=== PATIENT | male | born 1980 | race African-American/Black ===

== ENCOUNTER 2024-10-04 22:19 | Emergency (ER) | payer OTHER ==
[~2024-10-04] VITALS: Ht 180.3 cm; Wt 150.0 kg
[2024-10-04 22:19] VITALS: BP 0/0; PULSE 0; RESP 0; O2SAT 88
--- NOTE | 2024-10-04 22:30 | ED.PDOC ---
History of Present Illness HPI Comments 43 y/o M, with known reported Hx of CHF, HTN, and unknown blood thinner use, is BIBA for cardiac arrest, today. Per EMS report, they received a call at 2129 this evening, after family found him down, with a last reported seen normal time of, approximately, an hour prior. On scene arrival at 2136, patient was found in asystole and a blood glucose of 91, with compressions being performed by family, prior to care being assumed by EMS staff. En route, compressions were continued in addition to the patient being administered 4mg Narcan, calcium, sodium bicarbonate, and 5x epinephrine rounds (last round given at 2214), with no ROSC. Patient was also intubated with a 7.0 endotracheal tube 23 cm at the teeth and had a I/O placed to his right proximal tibia by EMS. Upon arrival to ED at 2217, patient still remained in asystole, with an estimated total downtime of approximately 2 hours, and care was resumed by ED staff. EMS staff provided additional information on family on scene endorsing on the patient c/o being weak the past 2 days and chest pain all day, today. Further history cannot be obtained at this time, due to patient's condition and absence of family/box feeder historians. Time Seen by MD: 22:18 Reviewed Notes: Nurses Notes, Medications, Allergies Information Source: Patient, Emergency Med Personnel Mode of Arrival: EMS Severity: Moderate Review of Systems: unable to obtain ROS, due to patient being responsive Vital Signs Vital Signs Date Time Temp Pulse Resp B/P (MAP) Pulse Ox O2 Delivery O2 Flow Rate FiO2 10/04/24 23:58 205.5 Ambu-Bag 0 0 10/04/24 22:19 0/0 (0) Physical Exam General: Patient is unresponsive HEENT: Pupils fixed, dilated, nonreactive. There is no corneal reflex. conjunctival hemorrhage to the right eye Cardiac: No heart sounds auscultated, no pulses palpated, bedside ultrasound showed no cardiac activity Abdomen: Soft, nondistended Respiratory: B/L mechanical breath sounds upper lung with bagging. No spontaneous respirations, no spontaneous breath sounds auscultated Neuro: GCS 3, patient is unresponsive to painful stimulus, Extremities: 2+ pitting edema to lower bilateral extremities Past Medical History PAST MEDICAL HISTORY: CHF, HTN Past Medical History (Other): morbid obesity, unknown blood thinner use Surgical History: Unknown, Unobtainable Family History Family History: Unknown, Unobtainable Social History Smoker: Unknown, Unobtainable Alcohol: Unknown, Unobtainable Drugs: Unknown, Unobtainable Lives In: Home Was a procedure done? Was a procedure done?: No Differential Dx Considerations may include: cardiac arrest, respiratory arrest X-Ray, Labs, Meds, VS Vital Signs Date Time Temp Pulse Resp B/P (MAP) Pulse Ox O2 Delivery O2 Flow Rate FiO2 10/04/24 23:58 205.5 Ambu-Bag 0 0 10/04/24 22:19 96.4 0 0 0/0 (0) 88 Time of 1ST Reevaluation: 22:18 Reevaluation 1ST: Unchanged Time of 2ND Reevaluation: 22:28 Reevaluation 2ND: Unchanged Patient Education/Counseling: Pt Unresponsive Family Education/Counseling: No Family Present Departure 1 Departure Time of Disposition: 22:28 Impression: Primary Impression: Cardiac arrest Disposition: 20 Condition: Other ( ) Comments 43-year-old male arrived to the emergency department in cardiac arrest. Patient had been found pulseless with ongoing resuscitation efforts by EMS for approximately 40 mins prior to arrival to the emergency department. In the emergency department ACLS protocols were continued. Patient received 3 rounds of epinephrine here in the emergency department as well as calcium, sodium bicarb and dextrose. Patient remained pulseless and there was no cardiac activity on bedside ultrasound. potato peeler showed PEA. There were no signs of neurological activity on physical exam. ROSC was unable to obtained. Resuscitation efforts discontinued after approximately one hour of know down time. TOD 2228. Discussed with patient's mother who is out of state via phone. Critical Care Note Critical Care Time?: No Stability Stability form required: No Heart Score Heart Score: Heart Score Response (Comments) Value History N/A 0 EKG N/A 0 Age N/A 0 Risk Factors N/A 0 Troponin N/A 0 Total 0 I personally scribed for OTONIEL CLEANING MD ([email or web address]) on 10/04/24 at 22:30. Electronically submitted by Naresh Mckeon ([email or web address]). I personally scribed for OTONIEL CLEANING MD ([email or web address]) on 10/04/24 at 23:23. Electronically submitted by Naresh Mckeon ([email or web address]). I personally scribed for OTONIEL CLEANING MD ([email or web address]) on 10/05/24 at 01:11. Electronically submitted by Naresh Mckeon ([email or web address]). OTONIEL CLEANING MD Oct 04, 2024 22:30
--- NOTE | 2024-10-04 23:58 | RESUS ---
CODE BLUE ASSESSSMENT History of Events History of Events: 43 y/o M, with known reported Hx of CHF, HTN, and unknown blood thinner use, is BIBA for cardiac arrest, today. Per EMS report, family of the patient called after finding the patient down, with a last reported seen normal time of, approximately, an hour ago, Pt had been c/o of chest pain. On scene, patient was found with compressions being performed by family, ems gave 5 rounds of epi, ca, bicab, and 4mg of narcan, pt remained asystole. Initial Information Date: Oct 04, 2024 Time: 21:30 Location of Arrest: In Field Arrest Witnessed: No CPR started initial time: :30 CPR started by whom: Bystander Last seen well: 1 hour prior Pre-Hospital Care: ACLS Type of arrest: Cardiac, Respiratory, Adult, Unwitnessed Spontaneous Respirations: No Pulse Present: No Monitoring: ECG, Pulse Oximetry, Apnea, Telemetry Crash Cart Opened and Supplies: Yes Airway Ventilation Breathing at Onset: Apneic O2 Sat by Pulse Oximetry: 0 Oxygen Delivery Method: Ambu-Bag Oxygen 100% Time of first Assisted Ventila: 22:19 Intubation Size: 7.0 cuffed Intubated by: EMS Intubated orally: Yes Intubated Nasaly: No Tube secured at: 24 CO2 indicator used: Yes Confirmation: Auscultation, Exhaled CO2 Suctioning (Oral/Tracheal): No Comments: PT INTUBATED IN THE FIELD Circulation Circulation : Time: 22:19 Pulse Rate (adult): 0 Blood Pressure Systolic: 0 Blood Pressure Diastolic: 0 Temperature (Fahrenheit): 96.4 Procedure - Intraosseous Site of Intraosseous: Tibia aris-medial Intraosseous inserted by: EMS IN FIELD Medications & Response Medications and Responses #1: Medication Time: 22:20 ADULT Medications Given ADULT: Epinephrine 1 mg, Sodium Bacarbinate 50 meq, Calcium Chloride 10 mL Route of Administration: IO Heart Rate: 0 EKG Rhythm: PEA Blood Pressure Systolic: 0 Blood Pressure Diastolic: 0 Respiratory Rate: 0 O2 Sat by Pulse Oximetry: 0 EKG Rhythm: PEA Comment PULSE CHECK AT 2222 NO PULSE Medications and Responses #2: Medication Time: 22:23 ADULT Medications Given ADULT: Epinephrine 1 mg Route of Administration: IO Heart Rate: 0 EKG Rhythm: PEA Blood Pressure Systolic: 0 Blood Pressure Diastolic: 0 Respiratory Rate: 0 O2 Sat by Pulse Oximetry: 0 EKG Rhythm: PEA Comment NO PULSE 2224,2226 Medications and Responses #3: Medication Time: 22:26 ADULT Medications Given ADULT: Epinephrine 1 mg, D50 (amp) Route of Administration: IO Heart Rate: 0 EKG Rhythm: PEA Blood Pressure Systolic: 0 Blood Pressure Diastolic: 0 Respiratory Rate: 0 O2 Sat by Pulse Oximetry: 0 EKG Rhythm: PEA Comment 2228 NO PULSE TOD, NO CARDIAC ACTIVITY BY U/S Pacing Pacer Pads Applied and Pacing: Yes Nurses Notes Leonard Coma Scale Eye Opening: None (1) Leonard Coma Scale Verbal: None (1) Leonard Coma Scale Motor: Extensor Response (2) Glascow Total: 3 Pupil Reaction: Non Reactive Bedside Blood Glucose: 53 EKG Rhythm: PEA Time Code Ended Time Code Ended: 22:08 Post Arrest Status: Outcome of code: Unsuccessful Patient pronounced by: DR CLEANING Time patient pronounced: 22:28 Family notified: Yes Attending called: Yes Code Team Present: TYLER ROB RN HS, SHARLA FORM LAYER, DECEMBER RN, DARIAN RN, ARTEMIO ERT, ERA ERT, NNAMDI RT, SUMANTH RT Post Resuscitation Neurologica Pupil Size: 4 Comment: FIXED, NO CORNEAL REFLEX TYLER CARDONA Oct 04, 2024 23:58
== END 2024-10-04 22:41 ==
LOC: ER 22:19 → EDBD 22:19 → ER 22:41
DX: I46.9 Cardiac arrest, cause unspecified (principal); I11.0 Hypertensive heart disease with heart failure; I50.9 Heart failure, unspecified; F17.200 Nicotine dependence, unspecified, uncomplicated; Z46.82 Encounter for fitting and adjustment of non-vascular catheter
CPT/HCPCS: 92950